=== PATIENT | male | born 1970 | race Caucasian/White ===

== ENCOUNTER 2018-04-26 11:09 | Emergency (ER) | payer SELFPAY ==
[~2018-04-26] VITALS: Ht 157.5 cm; Wt 70.0 kg
[2018-04-26 11:20] VITALS: BP 153/96; PULSE 90; RESP 18; Ht 157.5 cm; Wt 70.0 kg
[2018-04-26] MEDS ORDERED: SOD CHLORIDE 0.9% 1,000 ML IV STA (11:22)
--- NOTE | 2018-04-26 11:26 | ERD ---
ER Documentation Chief Complaint Chief Complaint Alcohol intoxication HPI Patient is a 48-year-old male who presents with alcohol intoxication. The patient was brought in by ambulance. He does not want to stay in the emergency department. He is ambulating in the emergency department is going to leave under his own power. ROS All systems reviewed and are negative except as per history of present illness. PMhx/Soc Medical and Surgical Hx: pt denies Medical Hx FmHx Family History: No diabetes Physical Exam Physical Exam Const: No acute distress Head: Atraumatic Eyes: Normal Conjunctiva ENT: Normal External Ears, Nose and Mouth. Neck: Full range of motion. No meningismus. Resp: Clear to auscultation bilaterally Cardio: Regular rate and rhythm, no murmurs Abd: Soft, non tender, non distended. Normal bowel sounds Skin: No petechiae or rashes Back: No midline or flank tenderness Ext: No cyanosis, or edema Neur: Awake and able to ambulate under his own power Results 24 hrs Current Medications Medications Dose Sig/Andre Start Time Status Last (Trade) Ordered Route PRN Stop Time Admin Dose Reason Admin Sodium 1,000 ml @ Q1H STAT 04/26/18 Chloride 1,000 mls/hr IV 11:22 04/26/18 12:21 Procedures/MDM Patient is a 48-year-old male who presents with alcohol intoxication. He does not want to be in the emergency department at this time. He is ambulating on his own in the emergency department. He is refusing further treatment. He can return for any worsening symptoms. Departure Diagnosis: Primary Impression: Alcoholic intoxication Complication of substance-induced condition: uncomplicated Qualified Codes: F10.920 - Alcohol use, unspecified with intoxication, uncomplicated Condition: Fair Patient Instructions: Alcohol Intoxication Referrals: [facility] Usted se price hecho un examen mdico de control que le indica que no est en mariah condicin que requiera tratamiento urgente en el Departamento de Emergencia. Un estudio ms profundo y el tratamiento de pinzon condicin pueden esperar sin ningn riesgo hasta que usted sea atendida/o en el consultorio de pinzon mdico o mariah clnica. Es responsabilidad suya arreglar mariah whit para el seguimiento del nemo. MANEJO DE CONDICIONES NO URGENTES EN EL FUTURO 1) Si usted tiene un mdico de atencin primaria: Usted debera llamar a pinzon mdico de atencin primaria antes de venir al departamento de emergencia. Despus de las horas de consultorio, pinzon doctor o pinzon asociado/a est disponible por telfono. El mdico o enfermero de ravi en el servicio telefnico puede asesorarle por astrid medio para atender el problema, o nemo contrario se puede programar mariah whit. 2) Si usted no tiene un mdico de atencin primaria: Llame al mdico o clnica de referencia que aparece abajo gumaro las horas de consultorio para hacer mariah whit para que le vean. CLINICAS: [facility] [phone] [id number] [facility] [phone] [address] [facility] [facility] [phone] [address] [facility] [phone] [address] [facility] [place] [phone] [facility]. [phone] [address] Additional Instructions: Llame al doctor MAANA y adolfo mariah WHIT PARA DENTRO DE 1-2 GRACE.Dgale a la secretaria que nosotros le instruimos hacer esta whit.Avise o llame si pinzon cond icin se empeora antes de la whit. Regresa aqui si peor o no mejor. EUGENE NGUYEN MD Apr 26, 2018 11:26
== END 2018-04-26 11:41 | disposition left against medical advice (07) ==
LOC: E/R 11:09
DX: F10.920 Alcohol use, unspecified with intoxication, uncomplicated (principal)
CPT/HCPCS: 99283; J7030